=== PATIENT | female | born 1940 | race Caucasian/White ===

== ENCOUNTER 2017-04-29 11:54 | Emergency (ER) | payer MEDICARE ==
[~2017-04-29] VITALS: Ht 157.4 cm; Wt 63.5 kg
[2017-04-29] MEDS ORDERED: HYDROCODONE BIT1 T11 PO (14:19)
== END 2017-04-29 15:37 | disposition home or self-care (01) ==
LOC: ED 11:54
DX: M76.891 Other specified enthesopathies of right lower limb, excluding foot (principal); M19.90 Unspecified osteoarthritis, unspecified site; Z88.2 Allergy status to sulfonamides